=== PATIENT | female | born 1985 | race Caucasian/White ===

== ENCOUNTER → 2020-12-08 09:52 | Outpatient (BNVA) | payer OTHER, SELFPAY | PROVIDERS: PCP Internal Medicine; Visit Provider Advanced Practice Midwife ==

== ENCOUNTER 2020-12-17 08:55 | Outpatient (REF) | payer OTHER, SELFPAY ==
[2020-12-17 11:39] LABS: Estimated Glomerular Filt Rate > 60
[2020-12-17 12:47] LABS: Total Volume 24 Hour Urine 2100 mL
[2020-12-17 12:48] LABS: Total Volume 24 Hour Urine 2100 mL
[2020-12-17 12:57] LABS: Creatinine, 24Hr Urine 1.3 G/Day (1.0-2.0); Creatinine, mg/dL 61.45; Phosphorus mg/dL 53.8 mg/dL; Phosphorus, 24 Hr Urine 1.1 G/Day (0.4-1.3); Sodium 24 Hr Urine 113.4 mmol/Day (40-220)
[2020-12-17 13:07] LABS: Creatinine, 24Hr Urine 1.3 G/Day (1.0-2.0); Creatinine, mg/dL 62.36; Uric Acid, 24 Hr Urine 426.3 mg/Day (250-750); Uric Acid, mg/dL 20.3 mg/dL
[2020-12-17 13:14] LABS: Creatinine (CrCl) 1.01 mg/dL (0.5-1.4)
[2020-12-17 13:15] LABS: Creatinine Clearance 88.7 mL/min (85-125)
[2020-12-18 18:02] LABS: Calcium, 24 Hr Urine 118 mg/24 h; Calcium/Creatinine Ratio 88 mg/g creat (30-275); Creatinine 24Hr Urine 1.34 g/24 h (0.50-2.15)
[2020-12-21 22:42] LABS: 24hr Urine Total Volume 2100 mL/24 h; Oxalic Acid 24 Urine 25.2 mg/24 h (3.6-38.0)
[2020-12-22 22:47] LABS: 24hr Urine Total Volume 2100 mL; Citric Acid, 24hr Urine 487 mg/24 h (100-1300); Citric Acid/Creat Ratio 24U 365 mg/g creat (180-1070); Creatinine, 24U 1.33 g/24 h (0.50-2.15)
[2020-12-23 03:51] LABS: Creatinine, 24H Ur 1.34 g/24 h (0.50-2.15); Magnesium, 24H Urine 135 mg/24 h (18-130); Magnesium, Urine 24H/g Creat 100 mg/g creat (30-135); Total Volume 2100 mL
== END 2020-12-17 08:56 | disposition home or self-care (01) ==
LOC: HO.HMGCLDS 08:55
PROVIDERS: PCP Internal Medicine; Visit Provider Internal Medicine Nephrology
DX: N20.0 Calculus of kidney (principal)
CPT/HCPCS: 36415; 82340; 82507; 82565; 82575; 83735; 83945; 84105; 84300; 84560

== ENCOUNTER → 2021-11-02 14:26 | Outpatient (BNVA) | payer OTHER, SELFPAY | PROVIDERS: PCP Internal Medicine; Visit Provider Advanced Practice Midwife ==

== ENCOUNTER → 2021-12-16 09:47 | Outpatient (BNVA) | payer OTHER, SELFPAY | PROVIDERS: PCP Internal Medicine; Visit Provider Advanced Practice Midwife ==

== ENCOUNTER 2022-06-13 16:29 | Outpatient (REF) | payer OTHER, SELFPAY ==
[2022-06-13 17:44] LABS: Influenza A PCR NEGATIVE (Negative); Influenza B PCR NEGATIVE (Negative); Resp Syncy Virus RNA Qual PCR NEGATIVE (Negative); SARS COV2 PCR INHOUSE NEGATIVE (Negative)
== END 2022-06-13 16:30 | disposition home or self-care (01) ==
LOC: HO.LNP 16:29
PROVIDERS: Visit Provider Nurse Practitioner Family
DX: Z20.822 Contact with and (suspected) exposure to COVID-19 (principal); R06.2 Wheezing
CPT/HCPCS: 0241U

== ENCOUNTER → 2023-01-24 15:40 | Outpatient (BNVA) | payer OTHER, SELFPAY | PROVIDERS: PCP Internal Medicine; Visit Provider Advanced Practice Midwife | DX: Z13.89 Encounter for screening for other disorder (principal) ==

== ENCOUNTER 2023-08-25 13:53 | Outpatient (AMB) | payer OTHER, SELFPAY ==
[2023-08-25 14:55] VITALS: BP 104/64; PULSE 64; TEMP 36.6; O2SAT 99; BMI 29.1
--- NOTE | 2023-08-25 14:55 | MHC.OFFWIV ---
Intake Vital Signs 08/25/23 14:55 Height 5 ft 7 in Weight 186 lb BMI 29.1 BP 104/64 Blood Pressure Location Lt brachial Position Sitting Pulse 64 Pulse Source Pulse Oximeter Temp 97.9 F Temp Source Temporal Artery Scan Pulse Oximetry (%) 99 Oxygen Delivery Method Room Air Intake Visit Reasons: EST/cough(lobby masked) Intake Note: pt is here for c/o cough Patient Tobacco Use Status: Never used Tobacco Allergies SEASONAL ALLERGIES Allergy (Intermediate, Uncoded 08/25/23 14:55) RUNNY NOSE Do you need a note to return to daycare/school/sports/work: Yes HPI HPI Comments History of Present Illness Details The patient is a 38-year-old female in today for a sick visit. Patient has a past medical history significant for asthma. She reports cough x2 weeks which has gotten progressively worse. Patient now says that she is coughing more frequently especially at night. Cough is dry. No shortness of breath, fever, ear pain. Patient has sick family members at home. Patient states that she ran out of her albuterol medication. Head is normocephalic, TMs visible pearly melgar. No sinus tenderness, clear nasal discharge. Pharynx is normal. Neck is supple with no lymphadenopathy. No fever. Reproducible chest wall pain. Normal heart sounds. Slight expiratory wheeze detected bilaterally. Patient likely has viral upper respiratory infection. Unlikely to be pneumonia, epiglottitis. No threat airway. Patient has been tested in office for SARs COVID and RSV. Will prescribe prednisone, benzonatate, and albuterol. Patient has been educated on signs of worsening symptoms and when to return to the walk-in clinic or to present to the emergency room. Patient advised to follow-up with primary care physician. [facility] Medical History (Updated 08/25/23 @ 15:37 by GENIE Kearns) Upper respiratory infection Dysuria Bronchitis Mastitis Sinusitis Physical exam Lactose intolerance Genital HSV Allergic rhinitis Renal calculus, bilateral Asthma Surgical History History of tonsillectomy and adenoidectomy Family History Mother No problems noted. Maternal Grandfather Leukemia Social History Housing: House Alcohol intake: never Patient Tobacco Use Status: Never used Tobacco e-Cigarette/Vaping Use: Never Used Second Hand Smoke Exposure: No service: No Current occupational status: employed Sexual orientation: Straight/Heterosexual Gender identity: Female Cognitive needs: No Hearing needs: No Vision needs: No Review of Systems Const Details: Constitutional : No Weight loss, No Fever, No Chills, No Fatigue, No ENT/Mouth : No sore throat, Rhinorrhea, no sinus tenderness. Eyes: No Eye Pain, No Swelling, No Redness Cardiovascular : Chest wall pain with movement inspiration, No SOB, No Dyspnea on Exertion, No Orthopnea, No Edema, No Palpitations Respiratory :Cough, No Sputum, scattered expiratory wheeze bilaterally. Neuro : No Headache All other systems reviewed and are negative All systems reviewed & are unremarkable except as noted in HPI and below Physical Exam Vital Signs: Last Vital Signs Temp 97.9 F 08/25/23 14:55 Pulse 64 08/25/23 14:55 BP 104/64 08/25/23 14:55 Pulse Ox 99 08/25/23 14:55 Oxygen Delivery Method Room Air 08/25/23 14:55 BMI result Body Mass Index 29.1 Vital signs reviewed and stable Appearance: Alert.? Oriented X3.? No acute distress.? Head: Normocephalic. Eyes: No Erythema or discharge.? ENT: Pharynx normal.?TM visible and pearly melgar. Neck: Normal inspection.? Neck supple. No Lymphadenopathy. ? CVS: Normal heart rate and rhythm.? Pulses normal.? Respiratory: No respiratory distress.? Scattered Expiratory Wheeze. Dry Cough. ? Neuro: Oriented X 3.? Assessment & Plan Assessment & Plan (1) Upper respiratory infection: Code(s): J06.9 - Acute upper respiratory infection, unspecified Qualifiers: URI type: unspecified URI Qualified Code(s): J06.9 - Acute upper respiratory infection, unspecified Plan Please refer to HPI Orders: Orders SARS-CoV2/FLU/RSV Today J06.9 - Acute upper respiratory infection, unspecified Coding Level of Care Code Est Pt Level 3 (46845) Diagnoses Upper respiratory tract infection, unspecified type J06.9 URI type: unspecified URI Time Spent (min) 15
== END 2023-08-25 16:00 | disposition home or self-care (01) ==
PROVIDERS: PCP Internal Medicine; Visit Provider Nurse Practitioner Primary Care
DX: J06.9 Acute upper respiratory infection, unspecified (principal)
CPT/HCPCS: 99213

== ENCOUNTER 2023-08-25 16:00 | Outpatient (REF) | payer OTHER, SELFPAY ==
[2023-08-25 18:02] LABS: Influenza A PCR NEGATIVE (Negative); Influenza B PCR NEGATIVE (Negative); Resp Syncy Virus RNA Qual PCR POSITIVE (Negative); SARS COV2 PCR INHOUSE NEGATIVE (Negative)
== END 2023-08-25 16:01 | disposition home or self-care (01) ==
LOC: HO.LNP 16:00
PROVIDERS: Visit Provider Nurse Practitioner Primary Care
DX: Z11.52 Encounter for screening for COVID-19 (principal); J06.9 Acute upper respiratory infection, unspecified
CPT/HCPCS: 0241U

== ENCOUNTER 2023-09-21 09:16 | Outpatient (AMB) | payer OTHER, SELFPAY ==
--- NOTE | 2023-09-21 09:17 | A.OFFPC_ITS ---
Vital Signs 09/21/23 09:18 Height 5 ft 7 in Weight 154 lb 8 oz BMI 24.2 BP 100/62 Blood Pressure Location Lt brachial Position Sitting Pulse 80 Pulse Source Pulse Oximeter Pulse Oximetry (%) 98 Oxygen Delivery Method Room Air Intake Visit Reasons: PE Research Fellow Required: No Accompanied by: Self / Same As Patient Allergies SEASONAL ALLERGIES Allergy (Intermediate, Uncoded 08/25/23 14:55) RUNNY NOSE Medication List - Last Reconciled 09/21/23 by GENIE Lubin albuterol sulfate 2.5 mg (3 mL) inhalation QID PRN albuterol sulfate 90 mcg/actuation (ProAir HFA) 2 puffs inhalation Q4-6H PRN loratadine (Claritin) 10 mg PO DAILY valacyclovir 500 mg PO BID PRN Tobacco use date assessed: 09/21/23 Dental Screening Dental Screen Date: 09/21/23 Did you have a dental visit in the last 12 months?: Yes Did you have a dental problem in the last 6 months where you did not have access to dental care?: No Was dental information given to patient?: Patient has dentist HPI HPI Comments History of Present Illness Details 38-year-old female past medical history significant for asthma, restless legs syndrome. Patient presents today for physical exam. Review of the notes patient was seen in the walk-in clinic in the beginning of the month for upper respiratory infection tested positive for RSV. Patient reports that she is feeling better states use as her rescue inhaler couple times week unless she is sick than she needs it more frequently. Patient denies any acute concerns. [place]apsmear: [place] [facility] [place] exam: Recommended every couple years TDAP UTD, flu shot given in office today. [facility] Medical History Upper respiratory infection Dysuria Bronchitis Mastitis Sinusitis Physical exam Lactose intolerance Genital HSV Allergic rhinitis Renal calculus, bilateral Asthma Surgical History History of tonsillectomy and adenoidectomy Family History Mother No problems noted. Maternal Grandfather Leukemia Social History (Updated 09/21/23 @ 09:34 by GENIE Lubin) Housing: House Alcohol intake: current Alcohol intake frequency: holidays/special occasions only Patient Tobacco Use Status: Never used Tobacco e-Cigarette/Vaping Use: Never Used Second Hand Smoke Exposure: No service: No Current occupational status: employed Sexual orientation: Straight/Heterosexual Gender identity: Female Cognitive needs: No Hearing needs: No Vision needs: No Questionnaire PHQ-9 Over the last 2 weeks, how often have you been bothered by any of the following problems? 1. Little interest or pleasure in doing things: not at all 2. Feeling down, depressed, or hopeless: not at all 3. Trouble falling or staying asleep, or sleeping too much: not at all 4. Feeling tired or having little energy: not at all 5. Poor appetite or overeating: not at all 6. Feeling bad about yourself - or that you are a failure or have let yourself or your family down: not at all 7. Trouble concentrating on things, such as reading the newspaper or watching television: not at all 8. Moving or speaking so slowly that other people could have noticed. Or the opposite - being so fidgety or restless that you have been moving around a lot more than usual: not at all 9. Thoughts that you would be better off or of hurting yourself in some way: not at all Total score: 0 Depression Screening Interpretation: Negative Depression Screening Done: Yes 75363 - PHQ-9 Billing: Yes Source: Developed by Drs. Lyle Dominguez, Carmen Tang, Will Garcia and colleagues, with an educational anju from for[MD]. Thrive Questionnaire Date Thrive assessed: 09/21/23 I am a: Patient What is your living situation today?: I have a steady place to live Within the past 12 months, did the food you bought not last and you didn't have the money to get more?: Never true Within the past 12 months, did you worry whether your food would run out before you got money to buy more?: Never true Do you have trouble paying for medicines?: No Do you have trouble getting transportation to medical appointments?: No Do you have trouble paying your heating and electricity bill?: No Do you have trouble taking care of your child, family member or friend?: No Do you have trouble with day-to-day activities such as bathing, preparing meals, shopping, managing finances, etc.?: No Are you currently unemployed and looking for a job?: No Are you interested in more education?: No Please select the resources that you would like help with: None Currently or been in a relationship where the following occur: no concerns reported AUDIT C Alcohol Use Questionnaire (AUDIT-C) 1. How often do you have a drink containing alcohol?: Monthly or less 2. How many drinks containing alcohol do you have on a typical day when you are drinking?: 1 or 2 3. How often do you have six or more drinks on one occasion?: Monthly Total Score: 3 SAYDA-7 AMB Questionnaire SAYDA-7 Date SAYDA - 7 assessed: 09/21/23 Feeling nervous, anxious, or on edge: 0 = Not at all Not being able to stop or control worryin = Not at all Worrying too much about different things: 0 = Not at all Trouble relaxin = Not at all Being so restless that it is hard to sit still: 0 = Not at all Becoming easily annoyed or irritable: 0 = Not at all Feeling afraid as if something awful might happen: 0 = Not at all Total SAYDA-7 score (0-4 normal; 5-9 mild; 10-14 moderate; 15-21 severe): 0 Source: Developed by Drs. Lyle Dominguez, Carmen Tang, Will Garcia and colleagues, with an educational anju from for[MD]. SAYDA-7 Assessment Billing SAYDA-7 Assessment Tool: SAYDA-7 Assessment 97167 Review of Systems Const Denies chills, Denies fatigue, Denies fever(s) and Denies poor appetite Eyes Denies no additional complaints ENT Reports Normal hearing present Card Denies chest pain, Denies syncope, Denies rapid heart rate and Denies dyspnea Resp Denies cough and Denies dyspnea GI Denies change in stool character, Denies constipation, Denies diarrhea, Denies nausea and Denies vomiting Denies urinary frequency, Denies dysuria and Denies urinary urgency Neuro Reports Normal hearing present, Denies confusion and Denies syncope Psych Denies confusion Endo Denies fatigue Physical exam (Primary Care) Vital Signs: Last Vital Signs Pulse 80 09/21/23 09:18 BP 100/62 09/21/23 09:18 Pulse Ox 98 09/21/23 09:18 Oxygen Delivery Method Room Air 09/21/23 09:18 BMI result Body Mass Index 24.2 Tobacco/Smoking Status: Tobacco use Status Tobacco use date assessed 09/21/23 09/21/23 09:26 Patient Tobacco Use Status Never used Tobacco 09/21/23 09:34 e-Cigarette/Vaping Use Never Used 09/21/23 09:34 PHQ-9: PHQ-9 Score PHQ-9: Total score 0 09/21/23 09:36 Depression Screening Interpretation: Negative Thrive Assessment: Date of Thrive Assessment Date Thrive assessed 09/21/23 09/21/23 09:26 Currently or been in a relationship where the following occur: no concerns reported Const General: No confusion Orientation/consciousness: No confusion HENMT Head: Yes normocephalic and Yes atraumatic Ears: external ears normal and TM's normal bilaterally General nose exam: Normal external nose present and Normal nasal mucous membranes and turbinates present Face and sinus: Yes normal facial exam and Yes sinuses nontender Mouth: moist mucous membranes Throat: Yes tonsils normal Eyes Conjunctivae: conjunctivae normal Sclerae: sclerae normal Pupils: Equal, round and reactive pupils present and Pupils normal by confrontation EOM: EOMs intact bilaterally Direct Ophthalmoscopy: normal light reflex Neck Neck: Yes no lymphadenopathy and Yes supple Thyroid: Thyroid normal Chest Chest palpation & inspection: normal inspection of the chest Resp Effort & Inspection: normal respiratory effort Auscultation: clear to auscultation bilaterally, no crackles, no rhonchi and no wheezes Cardio Rate: regular rate Rhythm: regular rhythm Peripheral pulses: radial pulses present and dorsalis pedis present GI Inspection: Yes normal to inspection Palpation (GI): Soft to palpation, nontender and No hepatosplenomegaly present Auscultation: normoactive bowel sounds Skin General skin exam: no rashes or lesions noted Neuro General: No confusion Cranial nerves: Yes Equal, round and reactive pupils present and Yes Normal hearing present Cognition (Neuro): normal cognition Gait exam (Neuro): Normal gait present Motor exam (neuro): 5/5 motor strength present throughout Deep tendon reflexes (DTR's): Right brachioradialis reflex intensity grade: 2+, Left brachioradialis reflex intensity grade: 2+, Right patellar reflex intensity grade: 2+ and Left patellar reflex intensity grade: 2+ Extrem General: No edema Office Procedures Flu Questionnaire Does the patient have a severe egg allergy?: No Does the patient have severe life threatening allergies?: No Does the patient have a fever or illness today?: No Has the patient ever had Guillain-Arg[place] Syndrome?: No Has the patient ever had any past reaction to a flu shot?: No Immunizations flu vacc [id number] 6mos up(PF) 60 mcg(15 mcgx4)/0.5 mL IM syringe Performing Provider: GENIE Lubin [facility] Administered by: BO Bingham on 09/21/23 09:42 Dose Route Admin Location Dispensed Lot Number Expiration Date N[employer] Development[facility] Specialist 0.5 mL IM Left Deltoid 0.5 mL [id number] 04/21/24 [id number] t-Art VIS Given Date VIS Provided VIS Publication Date 09/21/23 Single Vaccine 21 Eligibility Eligibility Date Funding Source Not [facility] Eligible 09/21/23 Private Assessment and Plan Assessment & Plan (1) Asthma: Code(s): J45.909 - Unspecified asthma, uncomplicated Qualifiers: Asthma severity: mild Asthma persistence: intermittent Asthma complication type: uncomplicated Qualified Code(s): J45.20 - Mild intermittent asthma, uncomplicated Plan: Continue on albuterol as needed. (2) Adult general medical exam: Code(s): Z00.00 - Encounter for general adult medical examination without abnormal findings Plan: Fasting labs ordered. Follow-up in 1 year. Plan Follow-up in 1 year. Orders: Orders Complete Blood Count Auto Diff Today Z13.0 - Encounter for screening for diseases of the blood and blood-forming organs and certain disorders involving the immune mechanism Comprehensive [place]. Panel Fast Today Z13.1 - Encounter for screening for diabetes mellitus TSH reflex Free T4 Today Z13.29 - Encounter for screening for other suspected endocrine disorder Influenza [id number] Immunization Today Z23 - Encounter for immunization Lipid Panel Today Z13.220 - Encounter for screening for lipoid disorders Vitamin D 25-OH Total Today R79.89 - Other specified abnormal findings of blood chemistry Coding Level of Care Code Est Pt Prev Care 18-39y(19390) Diagnoses Mild intermittent asthma without complication J45.20 Asthma severity: mild Asthma persistence: intermittent Asthma complication type: uncomplicated Adult general medical exam Z00.00 Additional Codes SAYDA-7 Assessment Billing - SAYDA-7 Assessment Tool: SAYDA-7 Assessment 55614 ([id number])
[2023-09-21 09:18] VITALS: BP 100/62; PULSE 80; O2SAT 98; BMI 24.2
== END 2023-09-21 09:47 | disposition home or self-care (01) ==
PROVIDERS: PCP Internal Medicine; Visit Provider Nurse Practitioner Family
DX: Z00.00 Encounter for general adult medical examination without abnormal findings (principal); J45.20 Mild intermittent asthma, uncomplicated; Z23 Encounter for immunization
CPT/HCPCS: 90471; 90686; 99395

== ENCOUNTER 2024-03-21 14:52 | Outpatient (AMB) | payer OTHER, SELFPAY ==
[2024-03-21 14:54] VITALS: BP 118/72; PULSE 82; TEMP 36.8; O2SAT 99; BMI 25.5
--- NOTE | 2024-03-21 14:54 | AM.OFFWIN_ITS ---
Intake Vital Signs 03/21/24 14:54 Height 5 ft 7 in Weight 163 lb BMI 25.5 BP 118/72 Blood Pressure Location Rt brachial Position Sitting Pulse 82 Pulse Source Pulse Oximeter Temp 98.2 F Temp Source Oral Pulse Oximetry (%) 99 Oxygen Delivery Method Room Air Intake Visit Reasons: EST/ rash on legs (lobby) Intake Note: Pt is here today for a rash on legs and started Monday Patient Tobacco Use Status: Never used Tobacco Allergies SEASONAL ALLERGIES Allergy (Intermediate, Uncoded 08/25/23 14:55) RUNNY NOSE Do you need a note to return to daycare/school/sports/work: No HPI HPI Comments History of Present Illness Details This is a 38-year-old female with no stated past medical history presenting for evaluation of a rash on her legs bilaterally that she first noticed on Monday. Patient denies having any pruritus, pain or burning sensation associated with a rash. Patient also denies having any new exposures including medications, lotions, soaps, detergents or razors. Patient states that the lesions appear to be darker later in the day and do not resolve over night with elevation. Patient states this has never occurred before. Patient has used hydrocortisone cream topically without relief of her symptoms. [facility] Medical History Upper respiratory infection Dysuria Bronchitis Mastitis Sinusitis Physical exam Lactose intolerance Genital HSV Allergic rhinitis Renal calculus, bilateral Asthma Surgical History History of tonsillectomy and adenoidectomy Family History Mother No problems noted. Maternal Grandfather Leukemia Social History Housing: House Alcohol intake: current Alcohol intake frequency: holidays/special occasions only Patient Tobacco Use Status: Never used Tobacco e-Cigarette/Vaping Use: Never Used Second Hand Smoke Exposure: No service: No Current occupational status: employed Sexual orientation: Straight/Heterosexual Gender identity: Female Cognitive needs: No Hearing needs: No Vision needs: No Review of Systems Const Denies chills and Denies fever(s) Card Reports no additional complaints Resp Reports no additional complaints Musc Reports no additional complaints, Denies numbness and Denies tingling Skin/Breast Denies pruritus, Reports lesions, Denies non-healing lesions, Denies erythema, Reports rash and Denies wounds Neuro Reports no additional complaints, Denies numbness, Denies Sensory deficit (Neuro), Denies tingling and Denies paresthesias Psych Reports no additional complaints Aller/Immun Reports no additional complaints Physical Exam Const General: cooperative, healthy appearing, comfortable, no acute distress, well developed, alert and awake Nutritional Appearance: average body habitus Orientation/consciousness: patient oriented x3 Limitations: no limitations Skin Other: There are multiple petechiae on the distal lower extremities bilaterally L >> R and anterior > posterior extremities that are non.blanching and dispersed in a linear pattern on the LLE. There are grouped erythematous papules on the medial aspect of the right ankle that are nontender to examination. No warmth or tenderness to touch. Lesions: no lesions and lesion noted Rashes: rashes noted Wounds: no wounds Neuro General: patient oriented x3, gait normal and moves all extremities Motor exam (neuro): 5/5 motor strength present throughout Sensory Exam: No Sensory deficit (Neuro) Extrem Other: ROM intact knees and ankles bilaterally; no calf tenderness or pitting edema bilaterally. Psych Appearance: grossly normal Mental Status: mental status grossly normal Insight: Good insight present (Psych) Judgement: Good judgement present (Psych) Assessment & Plan Assessment & Plan (1) Dermatitis: Comment: Given the characteristics of this dermatitis the lesions may be consistent with Lyme disease, lupus or a vasculitis. It does not appear to be related to a contact dermatitis. After thorough discussion with the patient, laboratories will be ordered and the patient will follow up with her primary care provider for the results of these tests. Patient is also invited to return to the emergency department any time if her symptoms worsen. Code(s): L30.9 - Dermatitis, unspecified Plan: CBC, basic metabolic panel, tick borne disease panel ordered and pending. Orders: Orders Complete Blood Count Auto Diff Today L30.9 - Dermatitis, unspecified Basic Metabolic Panel Today L30.9 - Dermatitis, unspecified Tick-borne Disease Molecular Today L30.9 - Dermatitis, unspecified Coding Level of Care Code Est Pt Level 3 (87086) Diagnoses Dermatitis L30.9 Time Spent (min) 25
== END 2024-03-21 15:18 | disposition home or self-care (01) ==
PROVIDERS: PCP Internal Medicine; Visit Provider Physician Assistant
DX: L30.9 Dermatitis, unspecified (principal)
CPT/HCPCS: 99213

== ENCOUNTER 2024-03-21 15:09 | Outpatient (REF) | payer OTHER, SELFPAY ==
[2024-03-21 15:57] LABS: MANUAL DIFF FLAG NO
[2024-03-21 16:09] LABS: Basophils Percent Auto 0.3 % (0-2); Eosinophils Absolute Auto 0.2 X10*3/uL (0.0-0.4); Hematocrit 35.1 % (37.0-47.0); Hemoglobin 12.2 g/dl (12.0-16.0); Imm Gran Abs Auto 0.02 X10*3/uL (0.00-0.03); Imm Gran Pct Auto 0.3 % (0.0-0.4); Lymphocytes Absolute Auto 1.9 X10*3/uL (1.2-4.9); Lymphocytes Percent Auto 31.6 % (20-40); Mean Corpuscular HGB Conc 34.8 g/dl (31.0-35.0); Mean Corpuscular Hemoglobin 29.9 pg (27.0-33.0); Mean Platelet Volume 9.2 fL (9.4-12.3); Monocytes Absolute Auto 0.6 X10*3/uL (0.1-1.2); Monocytes Percent Auto 9.3 % (2-11); Neutrophils Absolute Auto 3.3 x10*3/uL (2.0-8.3); Neutrophils Percent Auto 55.5 % (45-73); Platelet Count 269 X10*3/uL (160-400); Red Blood Count 4.08 X10*6/uL (4.20-5.50); Red Cell Distribution Width 11.5 % (11.0-16.0); White Blood Count 5.9 X10*3/uL (4.8-10.8)
[2024-03-21 16:20] LABS: Anion Gap 12 (12-20); Blood Urea Nitrogen 12 mg/dL (9-16); Calcium 9.8 mg/dL (8.4-10.2); Carbon Dioxide 28 mmol/L (22-29); Chloride 104 mmol/L (96-108); Estimated Glomerular Filt Rate > 60; Glucose Random 91 mg/dL (60-115); Potassium 3.8 mmol/L (3.3-5.1); Sodium 140 mmol/L (135-145)
[2024-03-23 11:13] LABS: A. Phagocytphilium DNA,RT-PCR NOT DETECTED (NOT DETECTED); Babesia Microti DNA, RT-PCR NOT DETECTED (NOT DETECTED); Borrelia Miyamotoi,DNA RT-PCR NOT DETECTED (NOT DETECTED); E.Chaffeensis DNA RT-PCR NOT DETECTED (NOT DETECTED); Lyme(Borrelia ssp)DNA RT-PCR NOT DETECTED (NOT DETECTED)
== END 2024-03-21 15:10 | disposition home or self-care (01) ==
LOC: HO.HMGCLDS 15:09
PROVIDERS: PCP Internal Medicine; Visit Provider Physician Assistant
DX: L30.9 Dermatitis, unspecified (principal)
CPT/HCPCS: 36415; 80048; 85025; 87468; 87469; 87478; 87484; 87798

== ENCOUNTER 2024-04-10 15:03 | Outpatient (REF) | payer OTHER, SELFPAY ==
[2024-04-17 21:27] LABS: HPV mRNA E6/E7 Not Detected (Not Detected)
== END 2024-04-10 15:04 | disposition home or self-care (01) ==
LOC: HO.LNP 15:03
PROVIDERS: PCP Internal Medicine; Visit Provider Advanced Practice Midwife
DX: Z01.419 Encounter for gynecological examination (general) (routine) without abnormal findings (principal); Z11.51 Encounter for screening for human papillomavirus (HPV)
CPT/HCPCS: 87624; 88142; 88175

== ENCOUNTER 2024-04-10 15:03 | Outpatient (AMB) | payer OTHER, SELFPAY ==
--- NOTE | 2024-04-10 15:12 | MHC.OFFVIS ---
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 Control Inspector Required: No Allergies SEASONAL ALLERGIES Allergy (Intermediate, Uncoded 08/25/23 14:55) RUNNY NOSE Is last menstrual period known: Yes Last menstrual period: 04/09/24 Post menopausal: No Patient : No HPI Comments Details: She is a premenopausal woman presenting for annual examination. Doing well with no concerns. She tries to eat healthy and stays active with exercise-walks. Regular monthly menses. Has her menses today. Currently is sexually active. She denies vaginal itching and irritation. STI screening offered; she declined. Denies family history of breast, ovarian or colon cancer. Last pap smear 2018, negative. [facility] Medical History Upper respiratory infection Dysuria Bronchitis Mastitis Sinusitis Physical exam Lactose intolerance Genital HSV Allergic rhinitis Renal calculus, bilateral Asthma Surgical History History of tonsillectomy and adenoidectomy Family History Mother No problems noted. Maternal Grandfather Leukemia Social History Housing: House Alcohol intake: current Alcohol intake frequency: holidays/special occasions only Patient Tobacco Use Status: Never used Tobacco e-Cigarette/Vaping Use: Never Used Second Hand Smoke Exposure: No service: No Current occupational status: employed Sexual orientation: Straight/Heterosexual Gender identity: Female Cognitive needs: No Hearing needs: No Vision needs: No Female Reproductive History Menstrual Date of last menstrual period: 04/09/24 Review of Systems Const All systems reviewed & are unremarkable except as noted in HPI and below Reports as per HPI Eyes Reports no additional complaints ENT Reports no additional complaints Card Reports no additional complaints Resp Reports no additional complaints GI Reports as per HPI and Reports no additional complaints Reports as per HPI Musc Reports no additional complaints Skin/Breast Reports as per HPI Neuro Reports no additional complaints Psych Reports no additional complaints Endo Reports no additional complaints Mike/Lymph Reports no additional complaints Aller/Immun Reports no additional complaints Physical Exam Const General: cooperative, healthy appearing, no acute distress, well developed and alert Orientation/consciousness: patient oriented x3 HEENT Head: Yes normal to inspection Eyes General: appearance normal, both eyes and all related structures Neck Neck: Yes normal visual inspection Thyroid: Thyroid normal Chest Chest palpation & inspection: normal inspection of the chest and other (no puckering, dimpling, peau de orange, retraction, discharge, masses) Breast/axilla inspection: normal inspection of the breasts Breast/axilla palpation: normal palpation of the breasts Resp Effort & Inspection: normal respiratory effort GI Inspection: Yes normal to inspection Palpation (GI): Soft to palpation Rectal Exam - Female: deferred General: Yes bladder normal to palpation External Female Exam: normal external appearance and normal appearance of the urethra Speculum Exam - Vagina: normal appearance of the vagina, normal palpation, normal vaginal discharge and vaginal bleeding Speculum Exam - Cervix: normal appearance of the cervix and normal palpation Bimanual exam- vagina & uterus: normal bimanual exam, normal palpation, uterine size normal, bladder normal to palpation, normal palpation and non-tender Bimanual Exam- Adnexa, other: no masses OB/external & speculum: vaginal bleeding Skin General skin exam: no rashes or lesions noted Rashes: no rashes Neuro General: patient oriented x3 Cognition (Neuro): normal cognition Extrem General: Yes normal to inspection Psych Attitude: cooperative Thought process: Normal thought process present Assessment & Plan Assessment & Plan (1) Well woman exam with routine gynecological exam: Code(s): Z01.419 - Encounter for gynecological examination (general) (routine) without abnormal findings Category: Medical Plan Discussed: Current recommendations for pap smears per ASCCP guidelines. Pap smear obtained today. Breast awareness and periodic breast exams. Maintain a healthy lifestyle including a well balanced diet and routine exercise. Discussed starting a folic acid supplement as she has not actively preventing or planning a . Patient verbalizes understanding and agrees to the plan of care. She was given opportunity to ask questions and all questions were answered to the best of my ability. 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 This note is constructed using voice recognition software. While every effort has been made to ensure accuracy, diamond merchant errors may have been included. Orders: Orders AMB HCG Urine Test Today Z32.02 - Encounter for test, result negative Coding Level of Care Code Est Pt Prev Care 18-39y(66874) Diagnoses Well woman exam with routine gynecological exam Z01.419
[2024-04-10 15:15] VITALS: BP 102/64; BMI 25.4
== END 2024-04-10 16:13 | disposition home or self-care (01) ==
LOC: HO.HWS 15:04
PROVIDERS: PCP Internal Medicine; Visit Provider Advanced Practice Midwife
DX: Z01.419 Encounter for gynecological examination (general) (routine) without abnormal findings (principal)
CPT/HCPCS: 99395

== ENCOUNTER 2024-04-15 09:20 | Outpatient (AMB) | payer OTHER, SELFPAY ==
[2024-04-15 10:49] VITALS: BP 110/70; PULSE 78; TEMP 36.6; O2SAT 98
--- NOTE | 2024-04-15 10:49 | MHC.OFFWIV ---
Intake Vital Signs 04/15/24 10:49 Height 5 ft 7 in BP 110/70 Blood Pressure Location Lt brachial Position Sitting Pulse 78 Pulse Source Pulse Oximeter Temp 97.9 F Temp Source Oral Pulse Oximetry (%) 98 Oxygen Delivery Method Room Air Intake Visit Reasons: EP rash/?Allergic [id number] Patient Tobacco Use Status: Never used Tobacco Allergies SEASONAL ALLERGIES Allergy (Intermediate, Uncoded 04/15/24 10:49) RUNNY NOSE Do you need a note to return to daycare/school/sports/work: Yes HPI HPI Comments History of Present Illness Details Patient presents to the walk-in today for sick visit Endorses 1 day of itchy rash to both ankles Denies any new exposures including medications, lotions, soaps, detergents or razors. Denies being outside barefoot or walk-in with the grass without shoes on Endorses itching, apply topical cream with minimal relief Also endorses worsening eczema to both hands Takes Claritin daily [facility] Medical History Upper respiratory infection Dysuria Bronchitis Mastitis Sinusitis Physical exam Lactose intolerance Genital HSV Allergic rhinitis Renal calculus, bilateral Asthma Surgical History History of tonsillectomy and adenoidectomy Family History Mother No problems noted. Maternal Grandfather Leukemia Social History Housing: House Alcohol intake: current Alcohol intake frequency: holidays/special occasions only Patient Tobacco Use Status: Never used Tobacco e-Cigarette/Vaping Use: Never Used Second Hand Smoke Exposure: No service: No Current occupational status: employed Sexual orientation: Straight/Heterosexual Gender identity: Female Cognitive needs: No Hearing needs: No Vision needs: No Review of Systems Const All systems reviewed & are unremarkable except as noted in HPI and below Physical Exam Vital Signs: Last Vital Signs Temp 97.9 F 04/15/24 10:49 Pulse 78 04/15/24 10:49 BP 110/70 04/15/24 10:49 Pulse Ox 98 04/15/24 10:49 Oxygen Delivery Method Room Air 04/15/24 10:49 General: awake, alert, oriented. Answers questions appropriately. Fully engaged in examination. Skin: warm, dry, intact. large, itchy, erythematous welts to both ankles, medially without drainage or lymphangitis HEENT: Normocephalic. Hearing intact. Cardiac: External chest normal in appearance. Respiratory: No cough, audible wheezing or stridor. Abdomen: without gross distension. MS: No obvious swelling or deformities. Neurological: Oriented to person, place, time and situation. Thought process intact. No gait abnormalities appreciated. Psychiatric: Appropriate mood and affect. Good judgment and insight. Assessment & Plan Assessment & Plan (1) Allergic reaction: Code(s): T78.40XA - Allergy, unspecified, initial encounter (2) Eczema: Code(s): L30.9 - Dermatitis, unspecified Plan Prednisone 40 mg daily x5 days Hydroxyzine 20 mg p.o. t.i.d. as needed for itching Apply cool cloth or ice packs as needed for itching Follow up with PCP or return any new or worsening symptoms Medications: New hydroxyzine HCl 25 mg PO TID PRN 20 tabs 0RF itching prednisone 40 mg (2 x 20 mg) PO DAILY 5 days 10 tabs 0RF Coding Level of Care Code Est Pt Level 3 (46510) Diagnoses Allergic reaction T78.40XA Eczema L30.9
== END 2024-04-15 11:23 | disposition home or self-care (01) ==
PROVIDERS: PCP Internal Medicine; Visit Provider Registered Nurse Emergency
DX: T78.40XA Allergy, unspecified, initial encounter (principal); L30.9 Dermatitis, unspecified
CPT/HCPCS: 99213

== ENCOUNTER 2024-04-19 15:00 | Outpatient (AMB) | payer OTHER, SELFPAY ==
[2024-04-19 15:18] VITALS: BP 104/70; PULSE 85; O2SAT 100; BMI 25.4
--- NOTE | 2024-04-19 15:18 | A.OFFPC_ITS ---
Vital Signs 04/19/24 15:18 Height 5 ft 7 in Weight 162 lb BMI 25.4 BP 104/70 Blood Pressure Location Lt brachial Position Sitting Pulse 85 Pulse Source Pulse Oximeter Pulse Oximetry (%) 100 Oxygen Delivery Method Room Air Intake Visit Reasons: rash on both legs knees down Allergies SEASONAL ALLERGIES Allergy (Intermediate, Uncoded 04/19/24 15:21) RUNNY NOSE Tobacco use date assessed: 04/19/24 Dental Screening Dental Screen Date: 09/21/23 HPI rash on both legs knees down HPI Details 38-year-old female with a history of ast hma coming in for an acute problem last seen in 09/11/2023. Patient was recently seen in the Urgent Center for a rash on both ankles diagnosis of dermatitis eczema and was treated with prednisone and hydroxyzine. This did not get any better. This happened also in March 21 and workup was requested. Workup has been negative and the rash has resolved patient does have eczema also which has cleared up and as for the asthma has not been using the inhalers and controlled. [facility] Medical History Upper respiratory infection Dysuria Bronchitis Mastitis Sinusitis Physical exam Lactose intolerance Genital HSV Allergic rhinitis Renal calculus, bilateral Asthma Surgical History History of tonsillectomy and adenoidectomy Family History Mother No problems noted. Maternal Grandfather Leukemia Social History Housing: House Alcohol intake: current Alcohol intake frequency: holidays/special occasions only Patient Tobacco Use Status: Never used Tobacco e-Cigarette/Vaping Use: Never Used Second Hand Smoke Exposure: No service: No Current occupational status: employed Sexual orientation: Straight/Heterosexual Gender identity: Female Cognitive needs: No Hearing needs: No Vision needs: No Questionnaire Thrive Questionnaire Date Thrive assessed: 09/21/23 AUDIT C Alcohol Use Questionnaire (AUDIT-C) 1. How often do you have a drink containing alcohol?: Monthly or less 2. How many drinks containing alcohol do you have on a typical day when you are drinking?: 1 or 2 3. How often do you have six or more drinks on one occasion?: Monthly Total Score: 3 SAYDA-7 AMB Questionnaire SAYDA-7 Date SAYDA - 7 assessed: 09/21/23 Source: Developed by Drs. Lyle Dominguez, Carmen Tang, Will Garcia and colleagues, with an educational anju from [employer]. Physical exam (Primary Care) Vital Signs: Last Vital Signs Pulse 85 04/19/24 15:18 BP 104/70 04/19/24 15:18 Pulse Ox 100 04/19/24 15:18 Oxygen Delivery Method Room Air 04/19/24 15:18 BMI result Body Mass Index 25.4 Tobacco/Smoking Status: Tobacco use Status Tobacco use date assessed 04/19/24 04/19/24 15:23 Patient Tobacco Use Status Never used Tobacco 04/19/24 15:18 e-Cigarette/Vaping Use Never Used 04/19/24 15:18 Thrive Assessment: Date of Thrive Assessment Date Thrive assessed 09/21/23 04/19/24 15:18 Const General: alert; No acute distress Eyes Conjunctivae: conjunctivae normal Resp Auscultation: clear to auscultation bilaterally Cardio Rate: regular rate Rhythm: regular rhythm GI Inspection: Yes normal to inspection Extrem General: Yes normal to inspection and No edema Assessment and Plan Assessment & Plan (1) Allergic reaction: Code(s): T78.40XA - Allergy, unspecified, initial encounter Plan: resolved (2) Eczema: Code(s): L30.9 - Dermatitis, unspecified Plan: resolved , lotion, lotion (3) Asthma: Code(s): J45.909 - Unspecified asthma, uncomplicated Qualifiers: Asthma severity: mild Asthma persistence: intermittent Asthma complication type: uncomplicated Qualified Code(s): J45.20 - Mild intermittent asthma, uncomplicated Plan: stable Coding Level of Care Code Est Pt Level 3 (66575) Diagnoses Allergic reaction T78.40XA Eczema L30.9 Mild intermittent asthma without complication J45.20 Asthma severity: mild Asthma persistence: intermittent Asthma complication type: uncomplicated
== END 2024-04-19 16:50 | disposition home or self-care (01) ==
PROVIDERS: PCP Internal Medicine; Visit Provider Internal Medicine
DX: T78.40XA Allergy, unspecified, initial encounter (principal); L30.9 Dermatitis, unspecified; J45.20 Mild intermittent asthma, uncomplicated
CPT/HCPCS: 99213

== ENCOUNTER 2024-09-24 14:58 | Outpatient (AMB) | payer OTHER, SELFPAY ==
[2024-09-24 15:03] VITALS: BP 106/62; PULSE 86; O2SAT 98; BMI 25.1
--- NOTE | 2024-09-24 15:03 | A.OFFPC_ITS ---
Vital Signs 09/24/24 15:03 Height 5 ft 7 in Weight 160 lb BMI 25.1 BP 106/62 Blood Pressure Location Lt brachial Position Sitting Pulse 86 Pulse Source Pulse Oximeter Pulse Oximetry (%) 98 Oxygen Delivery Method Room Air Intake Visit Reasons: Annual Exam Allergies SEASONAL ALLERGIES Allergy (Intermediate, Uncoded 09/24/24 15:03) RUNNY NOSE Medication List - Last Reconciled 09/24/24 by Valdemar Morales MD albuterol sulfate 2.5 mg (3 mL) inhalation QID PRN albuterol sulfate 90 mcg/actuation (ProAir HFA) 2 puffs inhalation Q4-6H PRN loratadine (Claritin) 10 mg PO DAILY valacyclovir 500 mg PO BID PRN Tobacco use date assessed: 09/24/24 Dental Screening Dental Screen Date: 09/24/24 Did you have a dental visit in the last 12 months?: Yes Did you have a dental problem in the last 6 months where you did not have access to dental care?: No Was dental information given to patient?: Patient has dentist HPI Annual Exam HPI Details 39-year-old female with a history of ast hma coming in for physical exam. Last seen in 04/11/2024. Patient is up-to-date with vaccinations did discuss with a history of asthma that she needs 1 dose of the pneumonia shot. [facility] Medical History (Updated 09/24/24 @ 15:29 by Valdemar Morales MD) Renal calculus, bilateral Adult general medical exam Upper respiratory infection Dysuria Bronchitis Mastitis Sinusitis Physical exam Lactose intolerance Genital HSV Allergic rhinitis Asthma Surgical History History of tonsillectomy and adenoidectomy Family History Mother No problems noted. Maternal Grandfather Leukemia Social History (Updated 09/24/24 @ 15:30 by Valdemar Morales MD) Housing: House Alcohol intake: current Alcohol intake frequency: holidays/special occasions only Comment: 2-3 x a week 1 drink Patient Tobacco Use Status: Never used Tobacco Tobacco use type: Cigarette e-Cigarette/Vaping Use: Never Used Second Hand Smoke Exposure: No service: No Current occupational status: employed Sexual orientation: Straight/Heterosexual Gender identity: Female Cognitive needs: No Hearing needs: No Vision needs: Yes Questionnaire PHQ-9 Over the last 2 weeks, how often have you been bothered by any of the following problems? 1. Little interest or pleasure in doing things: not at all 2. Feeling down, depressed, or hopeless: not at all 3. Trouble falling or staying asleep, or sleeping too much: not at all 4. Feeling tired or having little energy: not at all 5. Poor appetite or overeating: not at all 6. Feeling bad about yourself - or that you are a failure or have let yourself or your family down: not at all 7. Trouble concentrating on things, such as reading the newspaper or watching television: not at all 8. Moving or speaking so slowly that other people could have noticed. Or the opposite - being so fidgety or restless that you have been moving around a lot more than usual: not at all 9. Thoughts that you would be better off or of hurting yourself in some way: not at all Total score: 0 Depression Screening Interpretation: Negative Depression Screening Done: Yes 12131 - PHQ-9 Billing: Yes Source: Developed by Drs. Lyle Dominguez, Carmen Tang, Will Garcia and colleagues, with an educational anju from [employer]. Thrive Questionnaire Date Thrive assessed: 09/22/24 I am a: Patient What is your living situation today?: I have a steady place to live Within the past 12 months, did the food you bought not last and you didn't have the money to get more?: Never true Within the past 12 months, did you worry whether your food would run out before you got money to buy more?: Never true Do you have trouble paying for medicines?: No Do you have trouble getting transportation to medical appointments?: No Do you have trouble paying your heating and electricity bill?: No Do you have trouble taking care of your child, family member or friend?: I choose not to answer this question Do you have trouble with day-to-day activities such as bathing, preparing meals, shopping, managing finances, etc.?: No Are you currently unemployed and looking for a job?: No Are you interested in more education?: No Please select the resources that you would like help with: None Currently or been in a relationship where the following occur: No concerns reported THRIVE Score: 0 AUDIT C Alcohol Use Questionnaire (AUDIT-C) 1. How often do you have a drink containing alcohol?: 2-3 times a week 2. How many drinks containing alcohol do you have on a typical day when you are drinking?: 1 or 2 3. How often do you have six or more drinks on one occasion?: Never Total Score: 3 SAYDA-7 AMB Questionnaire SAYDA-7 Date SAYDA - 7 assessed: 09/24/24 Feeling nervous, anxious, or on edge: 0 = Not at all Not being able to stop or control worryin = Not at all Worrying too much about different things: 0 = Not at all Trouble relaxin = Not at all Being so restless that it is hard to sit still: 0 = Not at all Becoming easily annoyed or irritable: 0 = Not at all Feeling afraid as if something awful might happen: 0 = Not at all Total SAYDA-7 score (0-4 normal; 5-9 mild; 10-14 moderate; 15-21 severe): 0 Source: Developed by Drs. Lyle Dominguez, Carmen Tang, Will Garcia and colleagues, with an educational anju from [employer]. Review of Systems Const Denies poor appetite and Denies weakness Eyes Denies no additional complaints ENT Reports Normal hearing present, Denies dizziness, Denies nasal congestion, Denies tinnitus and Denies sore throat Card Denies chest pain, Denies syncope, Denies rapid heart rate and Denies dyspnea Resp Denies cough and Denies dyspnea GI Denies change in stool character, Reports constipation, Denies diarrhea, Denies nausea and Denies vomiting Denies urinary frequency, Denies difficulty voiding and Denies dysuria Neuro Reports Normal hearing present, Denies confusion, Denies dizziness, Denies syncope and Denies weakness Psych Denies confusion Physical exam (Primary Care) Vital Signs: Last Vital Signs Pulse 86 09/24/24 15:03 BP 106/62 09/24/24 15:03 Pulse Ox 98 09/24/24 15:03 Oxygen Delivery Method Room Air 09/24/24 15:03 BMI result Body Mass Index 25.1 Tobacco/Smoking Status: Tobacco use Status Tobacco use date assessed 09/24/24 09/24/24 15:12 Patient Tobacco Use Status Never used Tobacco 09/24/24 15:03 Tobacco use type Cigarette 09/24/24 15:12 e-Cigarette/Vaping Use Never Used 09/24/24 15:03 PHQ-9: PHQ-9 Score PHQ-9: Total score 0 09/24/24 15:14 Depression Screening Interpretation: Negative Thrive Assessment: Date of Thrive Assessment Date Thrive assessed 09/22/24 09/24/24 15:03 Currently or been in a relationship where the following occur: No concerns reported Const General: No confusion Orientation/consciousness: No confusion HENMT Head: Yes normocephalic Ears: external ears normal and TM's normal bilaterally Face and sinus: Yes normal facial exam Mouth: moist mucous membranes Throat: Yes tonsils normal Eyes Conjunctivae: conjunctivae normal Pupils: Equal, round and reactive pupils present and Pupil accommodation reflex normal Direct Ophthalmoscopy: normal light reflex Neck Neck: No lymphadenopathy Thyroid: Thyroid normal Chest Chest palpation & inspection: normal inspection of the chest Resp Effort & Inspection: normal respiratory effort and no audible wheezes Auscultation: clear to auscultation bilaterally, no crackles, no wheezes and lung sounds not diminished Cardio Rate: regular rate Rhythm: regular rhythm Peripheral pulses: radial pulses present and dorsalis pedis present GI Palpation (GI): no masses Auscultation: normal bowel sounds and normoactive bowel sounds Rectal Exam - Female: deferred Skin General skin exam: no rashes or lesions noted Rashes: no rashes Neuro General: No confusion Cranial nerves: Yes Equal, round and reactive pupils present and Yes Normal hearing present Cognition (Neuro): normal cognition Gait exam (Neuro): Normal gait present Motor exam (neuro): 5/5 motor strength present throughout Deep tendon reflexes (DTR's): Right brachioradialis reflex intensity grade: 2+, Left brachioradialis reflex intensity grade: 2+, Right patellar reflex intensity grade: 2+ and Left patellar reflex intensity grade: 2+ Extrem General: No edema Office Procedures Flu Questionnaire Does the patient have a severe egg allergy?: No Does the patient have severe life threatening allergies?: No Does the patient have a fever or illness today?: No Has the patient ever had Guillain-Allred Syndrome?: No Has the patient ever had any past reaction to a flu shot?: No Immunizations Fluarix Triv 4925-9975 (PF) 45 mcg (15 mcg x 3)/0.5 mL IM syringe Performing Provider: Valdemar Morales MD [facility] Administered by: Betsy Nguyen CMA on 09/24/24 15:14 Dose Route Admin Location Dispensed Lot Number Expiration Date NDC Skirt Maker 0.5 mL IM Left Deltoid 0.5 mL [id number] 04/21/25 03809-890-03 [place] [employer] VIS Given Date VIS Provided VIS Publication Date 09/24/24 Single Vaccine 21 Eligibility Eligibility Date Funding Source Not [facility] Eligible 09/24/24 Private Coding Level of Care Code Est Pt Prev Care 18-39y(87372) Diagnoses Annual physical exam Z00.00 Mild intermittent asthma without complication J45.20 Asthma severity: mild Asthma persistence: intermittent Asthma complication type: uncomplicated Additional Codes PHQ-9 - 22609 - PHQ-9 Billing: Yes ([id number]) Assessment & Plan Assessment & Plan (1) Annual physical exam: Code(s): Z00.00 - Encounter for general adult medical examination without abnormal findings Category: Medical Plan: Patient is advised to eat healthy, keep well hydrated, keep active and have adequate sleep. (2) Asthma: Code(s): J45.909 - Unspecified asthma, uncomplicated Category: Medical Qualifiers: Asthma severity: mild Asthma persistence: intermittent Asthma complication type: uncomplicated Qualified Code(s): J45.20 - Mild intermittent asthma, uncomplicated Plan: on Albuterol Orders: Orders Influenza [id number] Immunization Today Z23 - Encounter for immunization Free T4 (Free Thyroxine) Today J45.20 - Mild intermittent asthma, uncomplicated Thyroid Stimulating Hormone Today J45.20 - Mild intermittent asthma, uncomplicated Complete Blood Count Auto Diff Today J45.20 - Mild intermittent asthma, uncomplicated Comprehensive Met. Panel Today J45.20 - Mild intermittent asthma, uncomplicated Lipid Panel Today E78.00 - Pure hypercholesterolemia, unspecified, J45.20 - Mild intermittent asthma, uncomplicated Vitamin B12 and Folate Today J45.20 - Mild intermittent asthma, uncomplicated Vitamin D 25-OH Total Today J45.20 - Mild intermittent asthma, uncomplicated
== END 2024-09-24 15:40 | disposition home or self-care (01) ==
PROVIDERS: PCP Internal Medicine; Visit Provider Internal Medicine
DX: Z00.00 Encounter for general adult medical examination without abnormal findings (principal); J45.20 Mild intermittent asthma, uncomplicated; Z23 Encounter for immunization

== ENCOUNTER → 2024-09-24 14:58 | Outpatient (BNVA) | payer OTHER, SELFPAY | PROVIDERS: PCP Internal Medicine; Visit Provider Internal Medicine | DX: Z00.00 Encounter for general adult medical examination without abnormal findings (principal); Z23 Encounter for immunization; J45.20 Mild intermittent asthma, uncomplicated | CPT/HCPCS: 90471; 90656; 96127 ==

== ENCOUNTER 2025-04-17 15:00 | Outpatient (AMB) | payer OTHER, SELFPAY ==
--- NOTE | 2025-04-17 15:00 | MHC.OFFVIS ---
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 Doing well with bleach tester no concerns. Regular monthly menses. Currently is sexually active. Uses natural family planning to prevent does not want control. She denies vaginal itching or irritation. STI screening offered; she accepts. She tries to eat healthy and stays active with exercise. Denies family history of breast, ovarian or colon cancer. Last pap smear 2023, negative. [facility] Medical History Renal calculus, bilateral Adult general medical exam Upper respiratory infection Dysuria Bronchitis Mastitis Sinusitis Physical exam Lactose intolerance Genital HSV Allergic rhinitis Asthma Surgical History History of tonsillectomy and adenoidectomy Family History Mother No problems noted. Maternal Grandfather Leukemia Social History Housing: House Alcohol intake: current Alcohol intake frequency: holidays/special occasions only Comment: 2-3 x a week 1 drink Patient Tobacco Use Status: Never used Tobacco Tobacco use type: Cigarette e-Cigarette/Vaping Use: Never Used Second Hand Smoke Exposure: No service: No Current occupational status: employed Sexual orientation: Straight/Heterosexual Gender identity: Female Cognitive needs: No Hearing needs: No Vision needs: Yes Female Reproductive History Menstrual Age of Menarche: 14 Date of last menstrual period: 03/19/25 control method: none Total pregnancies: 3 Full term: 2 Number of Living Children: 2 Date of last pap smear: 04/10/24 (neg pap and hpv) Review of Systems Const All systems reviewed & are unremarkable except as noted in HPI and below Reports as per HPI Eyes Reports no additional complaints ENT Reports no additional complaints Card Reports no additional complaints Resp Reports no additional complaints GI Reports as per HPI and Reports no additional complaints Reports as per HPI Musc Reports no additional complaints Skin/Breast Reports as per HPI Neuro Reports no additional complaints Psych Reports no additional complaints Endo Reports no additional complaints Mike/Lymph Reports no additional complaints Aller/Immun Reports no additional complaints Physical Exam Vital Signs: Last Vital Signs BP 110/70 04/17/25 15:06 BMI result Body Mass Index 26.0 Const General: cooperative, healthy appearing, no acute distress, well developed and alert Orientation/consciousness: patient oriented x3 HEENT Head: Yes normal to inspection Eyes General: appearance normal, both eyes and all related structures Neck Neck: Yes normal visual inspection Thyroid: Thyroid normal Chest Chest palpation & inspection: normal inspection of the chest and other (no puckering, dimpling, peau de orange, retraction, discharge, masses) Breast/axilla inspection: normal inspection of the breasts Breast/axilla palpation: normal palpation of the breasts Resp Effort & Inspection: normal respiratory effort GI Inspection: Yes normal to inspection Palpation (GI): Soft to palpation Rectal Exam - Female: deferred General: Yes bladder normal to palpation External Female Exam: normal external appearance and normal appearance of the urethra Speculum Exam - Vagina: normal appearance of the vagina, normal palpation and normal vaginal discharge Speculum Exam - Cervix: normal appearance of the cervix and normal palpation Bimanual exam- vagina & uterus: normal bimanual exam, normal palpation, uterine size normal, bladder normal to palpation, normal palpation and non-tender Bimanual Exam- Adnexa, other: no masses Skin General skin exam: no rashes or lesions noted Rashes: no rashes Neuro General: patient oriented x3 Cognition (Neuro): normal cognition Extrem General: Yes normal to inspection Psych Attitude: cooperative Thought process: Normal thought process present Assessment & Plan Assessment & Plan (1) Encounter for annual routine gynecological examination: Code(s): Z01.419 - Encounter for gynecological examination (general) (routine) without abnormal findings Category: Medical Plan Discussed: Current recommendations for pap smears per ASCCP guidelines. Mammogram after her 40[age], orders placed. Breast awareness and periodic breast exams. Maintain a healthy lifestyle including a well balanced diet and routine exercise. Patient verbalizes understanding and agrees to the plan of care. She was given opportunity to ask questions and all questions were answered to the best of my ability. RTO in one year for annual bleach tester examination. This note is constructed using voice recognition software. While every effort has been made to ensure accuracy, diamond sizer and sorter errors may have been included. Orders: Orders MM tomosynthesis screening BI 05/26/25 Z12.31 - Encounter for screening mammogram for malignant neoplasm of breast Coding Level of Care Code Est Pt Prev Care 18-39y(50915) Diagnoses Encounter for annual routine gynecological examination Z01.419
[2025-04-17 15:06] VITALS: BP 110/70; BMI 26.0
--- OUTSIDE RECORDS SUMMARY | 2025-04-17 18:12 | XMS_ITS | Clinical Summary ---
Author Organization [facility] Facility Address [address] [place] [id number] Care Team Providers Care Networking Engineer Name Role Phone Valdemar Morales MD Primary Care Provider [phone] Allergies No known active allergies Medications albuterol (2.5 MG/3ML) 0.083% nebulizer solution 1 vial by Other route 3 (three) times a day Active albuterol HFA (PROVENTIL HFA;VENTOLIN HFA) 108 (90 Base) MCG/ACT inhaler 2 puffs by Other route 4 (four) times a day Active fluticasone (FLONASE) 50 MCG/ACT nasal spray Administer 1 spray into each nostril 1 (one) time each day Active loratadine (CLARITIN) 10 MG tablet Take 10 mg by mouth daily Active fluticasone HFA (Flovent HFA) 110 MCG/ACT inhaler 1 puff by Other route 2 (two) times a day Active norethindrone (MICRONOR) 0.35 MG tablet Take 1 tablet by mouth daily 1 Active Vit-Fe Fumarate-FA (Classic ) 28-0.8 MG tablet Take 1 tablet by mouth 1 (one) time each day 1 Active Active Problems Problem Noted Date Diagnosed Date Tonsillectomy 01/11/2022 Adenoid excision 01/11/2022 Renal stone 12/22/2020 care status 11/01/2020 Overview (12/22/2020): with Reena Flower on 10/31/09, baby girl Marisol, first-degree lac Normal labor 10/31/2020 Overview (12/22/2020): 10/31/2020 Onset of labor 4a 5:30a /-2 vtx intact Normal 10/31/2020 History of sexually transmitted disease 10/20/20 20 Overview (12/22/2020): Taking valtrex SSE, external exam showed no lesions Last Assessment & Plan: Taking valacyclovir, will continue through end of Anemia in mother complicatin g , childbirth AND/OR puerperium 09/07/2020 Overview (12/22/2020): 08/25/20 9.9/29.3 Pt aware, started Fe Repeat H/H at 34-36 wks - 10/21 11.8/35.5 Last Assessment & Plan: H/H 11.8/35.5 - happy with improved level, will continue Fe Asthma 04/21/2020 Overview (12/22/2020): Hx asthma with infrequent sx per pt; some increase in fall/winter. Multigravida of advanced maternal age 0603/26/2020 Overview (12/22/2020): CNM OB-CMI score: 2 [03/26/2020] Rh + GC/Chlam neg PAP 01/2019 - nml per pt; record release signed 04/21/20 Tdap 09/22/20 Flu 08/25/20 Hgb 9.9 GTT 139 GBS 10/20 neg PPBC probably OCPs screening - normal Counsyl, Level II Last Assessment & Plan: Ladan is a 35yo at 36 1/7 weeks. Feeling well, no concerns. Active baby. Has had some cramping. Denies VB, LOF. GBS today. PPBC - will probably start OCPs again. Reviewed labor warning signs, when to call, how to reach oncall CNM. In person LASHAE in one week, will bring BP cuff with her for accuracy check. Immunizations Immunization Administration Dates Next Due Influenza, Quadrivalent, Preservative Free 08/25,08/07/2017 Influenza, Quadrivalent, With Preservative 07/16 Influenza, Unspecified 08/24/2010 Tdap 09/22/2020,04/23/2013 Family History Relation Status Comments Father Alive Mother Alive Social History Tobacco Use Types Packs/Day Years Used Date Smoking Tobacco: Never Smokeless Tobacco: Never Alcohol Use Standard Drinks/Week Comments Yes 0 (1 standard drink = 0.6 oz pure alcohol) Alcoholic Drinks/day: Occasional social drink Comments Unknown Sex and Gender Information Value Date Recorded Sex Assigned at Not on file Legal Sex Female 4:55 PM EST Gender Identity Not on file Sexual Orientation Not on file Last Filed Vital Signs Vital Sign Reading Time Taken Comments Blood Pressure 119/60 01/11/2022 1:57 PM EDT Pulse 74 01/11/2022 1:57 PM EDT Temperature - - Respiratory Rate - - Oxygen Saturation 99% 01/11/2022 1:57 PM EDT Inhaled Oxygen Concentration - - Weight 66.5 kg (146 lb 9.6 oz) 01/11/2022 1:57 P M EDT Height 167.6 cm (5' 6 ) 09/03/2019 12:00 PM EST Body Mass Index 23.66 09/03/2019 12:00 PM EST Plan of Treatment Health Maintenance Due Date Last Done Comments Hepatitis B Vaccine (1 of 3 - 19+ 3-dose series) 2004 Influenza Vaccine (Season Ended) 2025 08/25/2020, 07/16/2018, 08/07/2017, Additional history exists Pneumococcal Vaccine: Peds (0 to 5 Years) and At-Risk Patients (6 to 49 Years) Aged Out No longer eligi [facility] based on patient's age to complete this topic Insurance Comprehensive Benefits Comprehensive Benefits Care Teams Networking Engineer Relationship Specialty Start Date End Date Valdemar Morales MD [id number] [place] PCP - General 11/02/20
== END 2025-04-17 15:43 | disposition home or self-care (01) ==
LOC: HO.HWS 15:00
PROVIDERS: PCP Internal Medicine; Visit Provider Advanced Practice Midwife
DX: Z01.419 Encounter for gynecological examination (general) (routine) without abnormal findings (principal)
CPT/HCPCS: 99395; 99459

== ENCOUNTER 2025-06-02 15:49 | Outpatient (REF) | payer OTHER, SELFPAY ==
--- OUTSIDE RECORDS SUMMARY | 2025-06-02 15:51 | XMS_ITS | Clinical Summary ---
Author Organization [facility] Facility Address [address] [place] [id number] Care Team Providers Care Linen Room Worker Name Role Phone Valdemar Morales MD Primary Care Provider [phone] Allergies No known active allergies Medications albuterol [...] - 19+ 3-dose series) 2004 Influenza Vaccine (#1) 2025 0, 07/16/2018, 08/07/2017, Additional history exists Pneumococcal Vaccine: Peds (0 to 5 Years) and At-Risk Patients (6 to 49 Years) Aged Out No longer [facility] based on patient's age to complete this topic Insurance Comprehensive Benefits Comprehensive Benefits Care Teams Linen Room Worker Relationship Specialty Start Date End Date Valdemar Morales MD [address] [place] PCP - General 11/02/20
--- OUTSIDE RECORDS SUMMARY | 2025-06-02 15:51 | XMS_ITS | Clinical Summary ---
Author Organization [facility] Address [facility] [place] [address] Care Team Providers Care Warehouse Unloader Name Role Phone None Primary Care Provider Unavailabl e Allergies Active Allergy Reactions Criticality Noted Date Comments Cis Free Text Allergy Trees. Stock Ragweed Pollen Mixture Medications valACYclovir (VALTREX) 500 mg tablet 500 mg, PO, Twice daily for 3 days prn 04/23/2010 Active montelukast (SINGULAIR) 10 mg tablet 10 mg, PO, QHS 04/23/2010 Active norgestimate-eth inyl estradiol (ORTHO TRI-CYCLEN, 28,) 0.18/0.215/0.25 mg-35 mcg (28) tablet 1 Tablet(s), PO, Once daily 04/23/2010 Active ketoconazole (NIZORAL) 200 mg tablet 200 MG = 1 Tablet(s), PO, Once daily 04/23/2010 Active traZODone (DESYREL) 50 mg tablet 50 M-2 Tablet(s), PO, QHS 04/23/2010 Active fluticasone (FLONASE) 50 mcg/Actuation nasal spray 2 [place](s) each side Nasal Once daily 05/17/2010 Active fexofenadine (AXEL) 180 mg tablet 180 MG = 1 Tablet(s) PO Once daily 08/17/2010 Active Active Problems Problem Noted Date Diagnosed Date CIS - Allergic rhinitis 10/23/2003 Immunizations Immunization Administration Dates Next Due Td Adult (not absorbed) 06/22/1999 Tdap (Adacel, Boostrix) 06/19/2009 Social History Tobacco Use Types Packs/Day Years Used Date Smoking Tobacco: Never Assessed Comments Unknown Sex and Gender Information Value Date Recorded Sex Assigned at Not on file Legal Sex Female 6:23 AM EST Gender Identity Not on file Sexual Orientation Not on file Plan of Treatment Health Maintenance Due Date Last Done Comments HIV screen 2003 Hepatitis C Screening 2003 Hepatitis B vaccine (0-59 yr s) and Risk (1) 2004 HPV test 2015 PAP Smear 2015 Tetanus/Diphtheria/Pertussis Vaccines (3 - Td or Tdap) 06/19/2019 06/19/2009, 06/22/1999 Covid-19 Vaccine ( - season) 2024 Breast Cancer Share Decision Needed 2025 Breast Cancer screening 2025 Influenza (Flu) vaccine (1 o f 1 - Influenza standard series) 06/23/2025 Care Teams Warehouse Unloader Relationship Specialty Start Date End Date None None PCP - General 07/12/17
== END 2025-06-02 15:50 | disposition home or self-care (01) ==
LOC: HO.MAMMO 15:49
PROVIDERS: PCP Internal Medicine; Visit Provider Advanced Practice Midwife
DX: Z12.31 Encounter for screening mammogram for malignant neoplasm of breast (principal)
CPT/HCPCS: 77063; 77067

== ENCOUNTER → 2025-06-02 16:00 | Outpatient (BNV) | payer OTHER, SELFPAY | PROVIDERS: PCP Internal Medicine; Visit Provider Radiology Body Imaging | DX: Z12.31 Encounter for screening mammogram for malignant neoplasm of breast (principal) | CPT/HCPCS: 77063; 77067 ==

== ENCOUNTER 2025-10-06 10:23 | Outpatient (AMB) | payer OTHER, SELFPAY ==
--- NOTE | 2025-10-06 10:30 | A.OFFPC_ITS ---
Vital Signs 10/06/25 10:31 Height 5 ft 7 in Weight 161 lb 2 oz BMI 25.2 BP 110/66 Blood Pressure Location Lt brachial Position Sitting Pulse 91 Pulse Source Pulse Oximeter Temp 97.3 F Temp Source Temporal Artery Scan Pulse Oximetry (%) 100 Oxygen Delivery Method Room Air Intake Visit Reasons: pink eye Intake Note: Patient is here to follow up on Sundown eye on left. Patient Services Technician Required: No Activities Officer: Present Accompanied by: Dependent of Minor Dependent Allergies SEASONAL ALLERGIES Allergy (Intermediate, Uncoded 10/06/25 10:31) RUNNY NOSE Medication List - Last Reconciled 10/06/25 by Alma Sommers MD albuterol sulfate 2.5 mg (3 mL) inhalation QID PRN albuterol sulfate 90 mcg/actuation (ProAir HFA) 2 puffs inhalation Q4-6H PRN loratadine (Claritin) 10 mg PO DAILY triamcinolone acetonide 0.1% 1 appl topical DAILY valacyclovir 500 mg PO BID PRN Tobacco use date assessed: 10/06/25 Dental Screening Dental Screen Date: 10/06/25 Did you have a dental visit in the last 12 months?: No Did you have a dental problem in the last 6 months where you did not have access to dental care?: No Was dental information given to patient?: No HPI HPI Comments History of Present Illness Details The patient is a 40 year old female presenting with red eye. She reports symptoms in her left eye began last week, which she initially thought was a stye. The patient describes the eye as crusty and droopy. She initially experienced pain upon blinking, but this has resolved and the primary symptom is now itching. She has attempted to manage symptoms with warm and cold compresses, along with [id number] eye drops for dryness and itching. She denies any changes in her vision. [facility] Medical History Renal calculus, bilateral Adult general medical exam Upper respiratory infection Dysuria Bronchitis Mastitis Sinusitis Physical exam Lactose intolerance Genital HSV Allergic rhinitis Asthma Surgical History History of tonsillectomy and adenoidectomy Family History Mother No problems noted. Maternal Grandfather Leukemia Social History Housing: House Alcohol intake: current Alcohol intake frequency: holidays/special occasions only Comment: 2-3 x a week 1 drink Patient Tobacco Use Status: Never used Tobacco Tobacco use type: Cigarette e-Cigarette/Vaping Use: Never Used Second Hand Smoke Exposure: No service: No Current occupational status: employed Sexual orientation: Straight/Heterosexual Gender identity: Female Cognitive needs: No Hearing needs: No Vision needs: Yes Female Reproductive History Menstrual Age of Menarche: 14 Questionnaire PHQ-9 Over the last 2 weeks, how often have you been bothered by any of the following problems? 1. Little interest or pleasure in doing things: not at all 2. Feeling down, depressed, or hopeless: not at all 3. Trouble falling or staying asleep, or sleeping too much: not at all 4. Feeling tired or having little energy: not at all 5. Poor appetite or overeating: not at all 6. Feeling bad about yourself - or that you are a failure or have let yourself or your family down: not at all 7. Trouble concentrating on things, such as reading the newspaper or watching television: not at all 8. Moving or speaking so slowly that other people could have noticed. Or the opposite - being so fidgety or restless that you have been moving around a lot more than usual: not at all 9. Thoughts that you would be better off or of hurting yourself in some wa y: not at all Total score: 0 Depression Screening Interpretation: Negative Depression Screening Done: Yes Source: Developed by Drs. Lyle Dominguez, Carmen Tang, Will Garcia and colleagues, with an educational anju from [employer]. Thrive Questionnaire Date Thrive assessed: 10/06/25 I am a: Patient What is your living situation today?: I have a steady place to live Within the past 12 months, did the food you bought not last and you didn't have the money to get more?: Never true Within the past 12 months, did you worry whether your food would run out before you got money to buy more?: Never true Do you have trouble paying for medicines?: No Do you have trouble getting transportation to medical appointments?: No Do you have trouble paying your heating and electricity bill?: No Do you have trouble taking care of your child, family member or friend?: No Do you have trouble with day-to-day activities such as bathing, preparing meals, shopping, managing finances, etc.?: No Are you currently unemployed and looking for a job?: No Are you interested in more education?: No Please select the resources that you would like help with: None Currently or been in a relationship where the following occur: No concerns reported THRIVE Score: 0 AUDIT C Alcohol Use Questionnaire (AUDIT-C) 1. How often do you have a drink containing alcohol?: Never Total Score: 0 SAYDA-7 AMB Questionnaire SAYDA-7 Date SAYDA - 7 assessed: 10/06/25 Feeling nervous, anxious, or on edge: 0 = Not at all Not being able to stop or control worryin = Not at all Worrying too much about different things: 0 = Not at all Trouble relaxin = Not at all Being so restless that it is hard to sit still: 0 = Not at all Becoming easily annoyed or irritable: 0 = Not at all Feeling afraid as if something awful might happen: 0 = Not at all Total SAYDA-7 score (0-4 normal; 5-9 mild; 10-14 moderate; 15-21 severe): 0 Source: Developed by Drs. Lyle Dominguez, Carmen Tang, Will Garcia and colleagues, with an educational anju from [employer]. Physical exam (Primary Care) Vital Signs: Last Vital Signs Temp 97.3 F 10/06/25 10:31 Pulse 91 10/06/25 10:31 BP 110/66 10/06/25 10:31 Pulse Ox 100 10/06/25 10:31 Oxygen Delivery Method Room Air 10/06/25 10:31 Mild conjunctival erythema and eyelid edema.Pupils equal, round, and reactive to light. Extraocular movements intact. BMI result Body Mass Index 25.2 Tobacco/Smoking Status: Tobacco use Status Tobacco use date assessed 10/06/25 10/06/25 10:35 Patient Tobacco Use Status Never used Tobacco 10/06/25 10:35 Tobacco use type Cigarette 10/06/25 10:35 e-Cigarette/Vaping Use Never Used 10/06/25 10:35 PHQ-9: PHQ-9 Score PHQ-9: Total score 0 10/06/25 10:35 Depression Screening Interpretation: Negative Thrive Assessment: Date of Thrive Assessment Date Thrive assessed 10/06/25 10/06/25 10:35 Currently or been in a relationship where the following occur: No concerns reported Coding Level of Care Code Est Pt Level 3 (79318) Diagnoses Bacterial conjunctivitis of left eye H10.9 Assessment & Plan Assessment & Plan (1) Bacterial conjunctivitis of left eye: Code(s): H10.9 - Unspecified conjunctivitis Plan: Start azithromycin 1% eye drop, apply 1 drop to affected eye twice a day for 2 days then once daily for 5 days. Separate doses by 08:00 hours. Medications: New azithromycin 1% one drop twice a day for two days, then once daily for 5 days 1 drp ophthalmic (eye) BID 2.5 mL 0RF 7 days azithromycin 1% separate doses by 8 hours. one drop into affected eye twice a day for two days, then once daily for 5 days 1 drp ophthalmic (eye) BID 2.5 mL 0RF 7 days
[2025-10-06 10:31] VITALS: BP 110/66; PULSE 91; TEMP 36.3; O2SAT 100; BMI 25.2
== END 2025-10-06 10:50 | disposition home or self-care (01) ==
LOC: HO.HMCH 10:24
PROVIDERS: PCP Internal Medicine; Visit Provider Student in an Organized Health Care Education/Training Program
DX: H10.9 Unspecified conjunctivitis (principal)